=== PATIENT | male | born 1980 | race Caucasian/White ===

== ENCOUNTER 2017-08-03 07:54 | Emergency (ER) | END 2017-08-03 09:20 | disposition home or self-care (01) ==

== ENCOUNTER 2018-07-22 10:47 | Emergency (ER) | payer OTHER ==
[~2018-07-22] VITALS: Wt 81.0 kg
[~2018-07-22 10:47] MED LIST: ERYT1OIN6 OP
[2018-07-22 10:51] VITALS: BP 140/90; PULSE 60; RESP 18
--- NOTE | 2018-07-22 11:18 | ERD ---
ER Documentation Chief Complaint Chief Complaint ANXIETY REACTION "MY FINGERS GET STIFF SOMETIMES" X 7 MONTHS HPI 38-year-old male, presents to the emergency department, complaining of 7 months with bilateral third, fourth and fifth digit paresthesias while the patient is sleeping that wakes him up the middle of the night. No pain, the symptoms occurred only at night. The patient is a contractor. He denies fever, no chills, no rashes. He also reports occasional episodes of bilateral wrist pain but not very often. No treatment attempted at this time. ROS All systems reviewed and are negative except as per history of present illness. Medications Home Meds Active Scripts Ibuprofen* (Motrin*) 600 Mg Tab, 600 MG PO Q8, #15 TAB Prov:ROLAN HERNADEZ MD 07/22/18 Erythromycin Base (Erythromycin) 1 Gm Oint...g., 1 GM OP QID, #1 Prov:YUNG JACKSON PA-C 08/03/17 Allergies Allergies: Coded Allergies: No Known Allergy (Unverified , 10/07/14) PMhx/Soc Hx Alcohol Use: No Hx Substance Use: No Hx Tobacco Use: No Physical Exam Vitals Vital Signs Date Temp Pulse Resp B/P (MAP) Pulse Ox O2 O2 Flow FiO2 Time Delivery Rate 07/22/18 98.1 60 18 140/90 99 10:51 (107) Physical Exam Const: No acute distress Head: Atraumatic Eyes: Normal Conjunctiva ENT: Normal External Ears, Nose and Mouth. Neck: Full range of motion. No meningismus. Resp: Clear to auscultation bilaterally Cardio: Regular rate and rhythm, no murmurs Abd: Soft, non tender, non distended. Normal bowel sounds Skin: No petechiae or rashes Back: No midline or flank tenderness Ext: No cyanosis, or edema Neur: Awake and alert Psych: Normal Mood and Affect Procedures/MDM No red flags. Differential diagnosis include but not limited to: Tendinitis, carpal tunnel syndrome, wrist sprain/strain, ligament injury, arthritis; low suspicion for fracture, dislocation, septic arthritis. Neurovascular exam grossly intact. no clinical findings suggestive of acute infectious process, no deformity, no rashes. Physical examination and clinical presentation consistent most likely with bilateral carpal tunnel syndrome. During the ED course the patient received treatment with bilateral wrist Velcro splint. clinical impression discussed with patient who agrees with management. The patient is stable to be treated outpatient and will be discharged home with recommendations for wrist splints at night and NSAIDs 3 times as needed pain. The patient was instructed to follow up with the primary care provider in the next 48h. If symptoms persist, worsen or new symptoms develop, then patient should return to the ED immediately. Instructions explained and given to patient with acknowledgment and demonstrated understanding. Disclaimer: Inadvertent spelling and grammatical errors are likely due to EHR/dictation software use and do not reflect on the overall quality of patient care. Also, please note that the electronic time recorded on this note does not necessarily reflect the actual time of the patient encounter. Departure Diagnosis: Primary Impression: Carpal tunnel syndrome on both sides Condition: Stable Additional Instructions: Muchas victor m por [facility] para puga servicio. Esperamos que en puga visita a la zaina de emergencia puga problema medico haya sido solucionado y que se sienta mucho mejor. Para estar seguros que puga mejoria sigue en proceso, le pedimos el favor de hacer megan colt de seguimiento medico con puga doctor primario en los proximos 2-4 nguyen. Lleve con usted estos documentos y las medicinas recetadas. Si aleks sintomas empeoran, NO SE ESPERE, por favor regrese a zaina de emergencia INMEDIATAMENTE. En hiral que usted no tenga un mdico de atencin primaria: Llame al mdico o clnica comunitaria de referencia que aparece abajo pavel las horas de consultorio para hacer megan colt para que le vean. CLINICAS: [facility] [phone] [facility] [phone] [facility] [phone] [facility] [phone] [facility] [phone] [facility]. [phone] ROLAN CH MD Jul 22, 2018 11:18
[2018-07-22] MEDS ORDERED: IBUP-1542 PO (11:19)
== END 2018-07-22 12:18 | disposition home or self-care (01) ==
LOC: FTE 10:47
DX: G56.03 Carpal tunnel syndrome, bilateral upper limbs (principal)